=== PATIENT | female | born 1985 | race Caucasian/White ===

== ENCOUNTER 2016-08-19 20:31 | Emergency (ER) | payer BC, OTHER ==
[~2016-08-19] VITALS: Ht 167.6 cm; Wt 109.5 kg
[~2016-08-19 20:31] MED LIST: MTR600X PO; OMEG10007 PO; OXYC5TAB PO; PRENTAB26 PO
[2016-08-19 20:45] VITALS: TEMP 36.9; Ht 167.6 cm; Wt 109.5 kg
[2016-08-19] MEDS ORDERED: NITR-5 PO (21:06)
[2016-08-19] MEDS ORDERED: BCPILLS PO (21:07)
[2016-08-19] MEDS ORDERED: SODIUM CHLORIDE 0.9% 1000ML 1,000 ML IV STA (21:48)
[2016-08-19] MEDS ORDERED: KETOROLAC TROMETHAMINE 30 MG/ML VIAL IV STA (21:53)
[2016-08-19 21:54] LABS: BASO % 0.2 %; EOS % 0.8 %; IG% 0.2 %; LYMPH % 16.3 %; LYMPH ABS # 1.84 K/uL (1.2-3.4); MEAN CELL VOLUME 82.4 fL (80-100); MEAN CORPUSCULAR HGB CONC 35.1 g/dl (32-36); MONO % 8.8 %; NEUT % 73.7 %; PLATELET COUNT 267 K/uL (130-400); RED BLOOD COUNT 4.49 M/uL (4.2-5.4)
[2016-08-19 21:55] LABS: BASO ABS # 0.02 K/uL (0-0.2); COMPLETE YES
[2016-08-19 22:03] LABS: BUN/CREATININE RATIO 14.3 (10-20); CALCIUM 8.4 mg/dl (8.5-10.1); CREATININE 0.6 mg/dl (0.60-1.20); POTASSIUM 3.6 mmol/L (3.5-5.1)
[2016-08-19 22:17] LABS: URINE APPEARANCE CLOUDY (CLEAR); URINE BILIRUBIN NEG (NEG); URINE COLOR YELLOW; URINE EPITHELIAL CELL AUTO >30 /lpf (0-5); URINE NITRITE NEG (NEG); URINE SPECIFIC GRAVITY 1.014 (1.000-1.030); UROBILINOGEN NEG (NEG); ZZUR CULT IF INDIC CLEAN CATCH YES
[2016-08-19 22:22] LABS: MANUAL MICROSCOPIC REQUIRED? NO; REVIEW REQ? NO
[2016-08-19] MEDS ORDERED: CEFTRIAXONE SOD INJ 1 GM ADDVIAL IV STA (22:33)
[2016-08-19] MEDS ORDERED: ONDA4TAB46 PO (23:33)
[2016-08-19] MEDS ORDERED: CEFD1CAP14 PO (23:33)
[2016-08-19 23:37] VITALS: BP 120/75; PULSE 83; O2SAT 97
--- NOTE | 2016-08-20 02:14 | EMERGENCY ROOM VISIT NOTE ---
History Report prepared by Haile: Fletcher Gurrola Under the Supervision of: Katharine RosasO. First contact with patient: 21:37 Chief Complaint: URINARY SYMPTOMS Stated Complaint: PAIN IN KIDNEYS,MAINLY LEFT,PAIN TO URINATE,FEVER, Nursing Triage Summary: Patient reports left sided flank pain that began yesterday. States that she has right sided flank pain yesterday. Patient states that she had her PCP call her in macrobid, started taking that today, states it is not helping at this time. Reports pain with urination and n/v. Hx of UTI's. History of Present Illness The patient is a 30 year old female who presents to the Emergency Room with complaints of constant dysuria beginning three days prior to arrival. She currently rates her discomfort as a 4/10 in severity. The patient associates intermittent bilateral flank pain, intermittent lower abdominal pain, nausea, increased urination frequency and urgency, and a low grade fever with today's symptoms. She notes the nausea began yesterday. The patient notes she has tried a heating pad, which helped alleviate her symptoms when they are mild. She states she has a history of UTIs, so she called her BUSINESS STRATEGIST who called in a prescription for Macrobid. The patient notes she began taking the Macrobid yesterday. She notes her last known menstrual period was a week and a half ago after having her child in November. Pt denies headache, change in vision, chest pain, shortness of breath, vomiting, diarrhea, and melena. 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 A total of 10 systems reviewed and were otherwise negative. Past Medical & Surgical Medical Problems: (1) 39 weeks gestation of (2) Ovarian cyst (3) Pneumonia Surgical Problems: (1) History of knee surgery (2) Patient declines vaginal after section () (3) Previous section (4) [place] teeth removed Family History Diabetes mellitus FH: cancer FH: gallbladder disease FH: heart disease FH: liver cancer MOTHER Hypertension Kidney disease Kidney stones Social History Smoking Status: Never Smoker Alcohol Use: none Marital Status: Housing Status: lives with family Occupation Status: employed Current/Historical Medications Scheduled Control Pills ( Control Pills), 1 TAB PO DAILY Cefdinir (Omnicef), 300 MG PO Q12H Nitrofurantoin Monohyd Macrocr (Macrobid), 100 MG PO BID Scheduled PRN Ibuprofen (Ibuprofen), 600 MG PO Q4H PRN for Pain, JIMENEZ, Cramping, or Fever Ondansetron Hcl (Zofran), 4 MG PO TID PRN for Nausea Allergies Coded Allergies: Codeine (Verified Allergy, Severe, RASH/NAUSEA, 11/08/15) Peanut (Verified Allergy, Severe, RASH, 11/08/15) Uncoded Allergies: SULFA DRUGS (Allergy, Mild, HIVES, 08/19/16) Physical Exam Vital Signs Date Time Temp Pulse Resp B/P Pulse Ox O2 Delivery O2 Flow Rate FiO2 08/19/16 23:37 83 20 120/75 97 Room Air 08/19/16 20:45 36.9 97 20 142/93 98 Room Air Physical Exam GENERAL: sitting up in bed, no acute distress, non-toxic EYE EXAM: normal conjunctiva OROPHARYNX: no exudate, no erythema, lips, buccal mucosa, and tongue normal and mucous membranes are moist NECK: supple, no nuchal rigidity, no adenopathy, non-tender LUNGS: Clear to auscultation. Normal chest wall mechanics HEART: no murmurs, S1 normal and S2 normal ABDOMEN: abdomen soft, non-tender, normo-active bowel sounds, no masses, no rebound or guarding. BACK: Back is symmetrical on inspection and there is no deformity, no midline tenderness, no CVA tenderness. SKIN: no rashes and no bruising UPPER EXTREMITIES: upper extremities are grossly normal. LOWER EXTREMITIES: No pitting edema. NEURO EXAM: Normal sensorium, cranial nerves II-XII grossly intact, normal speech, no gross weakness of arms, no gross weakness of legs. Medical Decision & Procedures Laboratory Results 08/19/16 21:25 Red Blood Count 4.49, Mean Corpuscular Volume 82.4, Mean Corpuscular Hemoglobin 29.0, Mean Corpuscular Hemoglobin Concent 35.1, Mean Platelet Volume 10.0, Neutrophils (%) (Auto) 73.7, Lymphocytes (%) (Auto) 16.3, Monocytes (%) (Auto) 8.8, Eosinophils (%) (Auto) 0.8, Basophils (%) (Auto) 0.2, Neutrophils # (Auto) 8.34, Lymphocytes # (Auto) 1.84, Monocytes # (Auto) 0.99, Eosinophils # (Auto) 0.09, Basophils # (Auto) 0.02 08/19/16 21:25 Test 08/19/16 21:25 White Blood Count 11.30 K/uL (4.8-10.8) Red Blood Count 4.49 M/uL (4.2-5.4) Hemoglobin 13.0 g/dL (12.0-16.0) Hematocrit 37.0 % (37-47) Mean Corpuscular Volume 82.4 fL (80-100) Mean Corpuscular Hemoglobin 29.0 pg (25-34) Mean Corpuscular Hemoglobin Concent 35.1 g/dl (32-36) Platelet Count 267 K/uL (130-400) Mean Platelet Volume 10.0 fL (7.4-10.4) Neutrophils (%) (Auto) 73.7 % Lymphocytes (%) (Auto) 16.3 % Monocytes (%) (Auto) 8.8 % Eosinophils (%) (Auto) 0.8 % Basophils (%) (Auto) 0.2 % Neutrophils # (Auto) 8.34 K/uL (1.4-6.5) Lymphocytes # (Auto) 1.84 K/uL (1.2-3.4) Monocytes # (Auto) 0.99 K/uL (0.11-0.59) Eosinophils # (Auto) 0.09 K/uL (0-0.5) Basophils # (Auto) 0.02 K/uL (0-0.2) RDW Standard Deviation 40.0 fL (36.4-46.3) RDW Coefficient of Variation 13.2 % (11.5-14.5) Immature Granulocyte % (Auto) 0.2 % Immature Granulocyte # (Auto) 0.02 K/uL (0.00-0.02) Urine Color YELLOW Urine Appearance CLOUDY (CLEAR) Urine pH 5.0 (4.5-7.5) Urine Specific [place] 1.014 (1.000-1.030) Urine Protein 2+ (NEG) Urine Glucose (UA) NEG (NEG) Urine Ketones NEG (NEG) Urine Occult Blood 3+ (NEG) Urine Nitrite NEG (NEG) Urine Bilirubin NEG (NEG) Urine Urobilinogen NEG (NEG) Urine Leukocyte Esterase MODERATE (NEG) Urine WBC (Auto) >30 /hpf (0-5) Urine RBC (Auto) >30 /hpf (0-4) Urine Hyaline Casts (Auto) 1-5 /lpf (0-5) Urine Epithelial Cells (Auto) >30 /lpf (0-5) Urine Bacteria (Auto) NEG (NEG) Urine Test NEG (NEG) Anion Gap 11.0 mmol/L (3-11) Est Creatinine Clear Calc Drug Dose 173.3 ml/min Estimated GFR () 142.8 Estimated GFR (Non- 123.2 BUN/Creatinine Ratio 14.3 (10-20) Calcium Level 8.4 mg/dl (8.5-10.1) Total Bilirubin 0.5 mg/dl (0.2-1) Aspartate Amino Transf (AST/SGOT) 13 U/L (15-37) Alanine Aminotransferase (ALT/SGPT) 24 U/L (12-78) Alkaline Phosphatase 92 U/L (45-117) Total Protein 6.9 gm/dl (6.4-8.2) Albumin 3.4 gm/dl (3.4-5.0) Globulin 3.5 gm/dl (2.5-4.0) Albumin/Globulin Ratio 1.0 (0.9-2) Laboratory results per my review. Medications Administered Medications (Trade) Dose Ordered Sig/Viv Route Start Time Stop Time Status Last Admin Dose Admin Sodium Chloride (Nss 1000ml) 1,000 ml @ 999 mls/hr Q1H1M STAT IV 08/19/16 21:48 08/19/16 22:48 DC 08/19/16 21:48 999 MLS/HR Ketorolac Tromethamine (Toradol Inj) 30 mg NOW STAT IV 08/19/16 21:53 08/19/16 21:55 DC 08/19/16 22:22 30 MG Ceftriaxone Sodium (Rocephin Inj) 1 gm NOW STAT IV 08/19/16 22:33 08/19/16 22:34 DC 08/19/16 22:44 1 GM ED Course ED COURSE: Vital signs were reviewed and showed normal vitals. The patients medical record was reviewed The above diagnostic studies were performed and reviewed. ED treatments and interventions as stated above. 0: The patient was evaluated in room C1B. A complete history and physical examination was performed. 2147: Ordered Sodium Chloride 1,000 ml @ 999 mls/hr IV. 2152: Ordered Toradol Inj 30 mg IV. 2232: Ordered Rocephin Inj 1 gm IV. 7: Upon reevaluation, the patient is doing well.I discussed my findings with the patient and she understands and agrees with the treatment plan. Based on the patients age, coexisting illnesses, exam and lab findings the decision to treat as an outpatient was made. The patient remained stable while under my care. The patient appeared well at the time of discharge. Medical Decision Differential diagnoses includes but is not limited to gastritis, peptic ulcer disease, GERD, gallbladder disease, pancreatitis, small bowel obstruction, acute coronary syndrome, pericarditis, ischemic bowel, irritable bowel disease, irritable bowel syndrome, appendicitis, diverticulitis, malignancy, hernia, urinary tract infection, torsion, /ectopic , perforation, trauma, infectious. Patient is a 30-year-old female who presents the ER for urinary urgency, frequency and dysuria. Patient notes this has been worsening for the past 2 days. She currently denies any abdominal pain or back pain but notes that she did have this earlier today. Labs show no significant leukocytosis or anemia. BMP along with LFTs, bilirubin or unremarkable. is negative. UA is remarkable for esterase, white cells and epithelial cells. With her symptoms I do favor she has a UTI although the urine was Made. She admits that this is extremely similar to her previous UTIs. She was given a gram of Rocephin. Previous cultures were reviewed. She was discharged on Omnicef to follow-up with her primary care doctor. Vitals were stable upon discharge. She was well- appearing. Abdomen had no signs peritonitis and consequently I did not feel the need for any additional imaging was prudent at this time. Discussed with Pt concerning signs and symptoms to watch out for. Pt was instructed to follow up with their PCP and discussed with the patient their option to return to the ED at anytime for persistent or worsening symptoms. The appropriate anticipatory guidance and out-patient management, including indications for return to the emergency department, were explained at length to the patient and understood. Impression Primary Impression: Urinary tract infection Additional Impressions: Symptoms involving urinary system Dysuria Scribe Attestation The scribe's documentation has been prepared under my direction and personally reviewed by me in its entirety. I confirm that the note above accurately reflects all work, treatment, procedures, and medical decision making performed by me. Departure Information Dispostion Home / Self-Care Prescriptions Cefdinir (Omnicef) 300 Mg Cap 300 MG PO Q12H for 10 Days, #20 CAP Prov: Tung Tsang, DO 08/19/16 Ondansetron Hcl (ZOFRAN) 4 Mg Tab 4 MG PO TID Y for Nausea, #30 TAB Prov: Tung Tsang, DO 08/19/16 Referrals Ifrah Dee MD (PCP) Forms HOME CARE DOCUMENTATION FORM, IMPORTANT VISIT INFORMATION Patient Instructions ED UTI Cystitis Female, My [facility] Additional Instructions Please follow up with your primary care doctor with in the next 24 hours. Any worsening of your symptoms, please return to the ED immediately. Persistent nausea vomiting, fevers greater than 100.4, passing out, worsening pain, or any other concerning signs or symptoms from your standpoint. Please take antibiotics as prescribed. Please take Zofran as needed for nausea. Problem Qualifiers Primary Impression: Urinary tract infection Urinary tract infection type: acute cystitis Hematuria presence: with hematuria Qualified Codes: N30.01 - Acute cystitis with hematuria
--- NOTE | 2016-08-21 13:17 | Pharmacy Progress Note ---
ED Pharmacist Culture FollowUp Date of Service: Aug 21, 2016. Patient was sent home with a prescription for cefdinir, which should cover the E. coli growing from the patient's urine culture.
== END 2016-08-19 23:55 | disposition home or self-care (01) ==
LOC: C.EDB 20:33 → C.EDC 23:55
DX: N39.0 Urinary tract infection, site not specified (principal); A49.8 Other bacterial infections of unspecified site

== ENCOUNTER → 2017-01-06 | Outpatient (CLI) | payer BC, OTHER ==
[~2017-01-06] MED LIST changes: +BCPILLS PO; +NITR-5 PO; -OMEG10007 PO; +ONDA4TAB46 PO; -OXYC5TAB PO; -PRENTAB26 PO
== END | disposition home or self-care (01) ==
LOC: C.PAPS 09:26
PROVIDERS: ATTEND Obstetrics & Gynecology
DX: Z01.419 Encounter for gynecological examination (general) (routine) without abnormal findings (principal)

== ENCOUNTER 2018-11-26 05:40 | Inpatient (IN) ==
--- NOTE | 2018-11-24 09:56 | PAT Medication Instructions ---
Medication Instructions Date of Service November 24, 2018 Home Medications PNV cmb#95-ferrous fumarate-FA 1 tab PO DAILY Vitamin B6 1 tab PO DAILY docusate sodium [Stool Softener] 2 cap PO DAILY doxylamine succinate [Unisom 12.5 mg PO HS PRN sertraline 75 mg PO QPM DO NOT take the morning of surgery PNV cmb#95-ferrous fumarate-FA 1 tab PO DAILY Vitamin B6 1 tab PO DAILY docusate sodium [Stool Softener] 2 cap PO DAILY Take evening before surgery doxylamine succinate Unisom 12.5 mg PO HS PRN (if needed) sertraline 75 mg PO QPM Other Notes If you have any questions please call us at [phone] or [phone] or [phone] or [phone]
--- NOTE | 2018-11-25 10:42 | Anesthesiology Consultation ---
Date of Service November 25, 2018 Assessment & Plan (1) Encounter for pre-operative examination: - Repeat c/s - No labs testing at PAT visit per GEOGRAPHY DEPARTMENT CHAIR Chart Review Chart Review: Acceptable Risk for Surgery and Patient seen in Pre Admission Testing Teaching & Discussion Pre-Anesthesia Teaching/Discussion Notes: Instructed NPO after midnight before surgery,except medications with 15 cc of water. Medication instructions provided according to the [facility] guidelines. History Surgery Operation Date: 11/26/18 07:30 Proposed Procedures p Section, - Lona Guerrero MD, FACOG s with Bilateral Tubal Ligation - Lona Guerrero MD, FACOG Height/Weight Height: 5 ft 7.5 in Weight: 116.2 kg Allergies Allergy/AdvReac Type Severity Reaction Status Date / Time codeine Allergy Severe RASH/NAUSEA Verified 11/18/18 09:41 (SEVERE) peanut Allergy Unknown RASH Verified 11/18/18 09:41 SULFA DRUGS Allergy Unknown HIVES Uncoded 11/18/18 09:41 Medications Home Medications Medication Instructions Recorded Confirmed Last Taken PNV cmb#95-ferrous fumarate-FA 1 tab PO DAILY 11/18/18 11/18/18 Unknown [] Vitamin B6 1 tab PO DAILY 11/18/18 11/18/18 Unknown docusate sodium [Stool Softener] 2 cap PO DAILY 11/18/18 11/18/18 Unknown doxylamine succinate [Unisom 12.5 mg PO HS PRN 11/18/18 11/18/18 Unknown (doxylamine)] sertraline 75 mg PO QPM 11/18/18 11/18/18 Unknown Past Medical History Medical History Depression with anxiety Hemorrhoid History of pre-eclampsia "STARTING OF" (WITH A PRIOR ); NOT AN ISSUE WITH CURRENT Obesity Past Family History Family History Mother Family history of liver cancer Past Surgical History Surgical History History of 2 sections INITIAL C/S 2/2 FAILURE TO PROGRESS REPEAT C/S: 11/11/15: SAB at L3-L4 at [facility] History of left knee surgery History of wisdom tooth extraction Past Anesthesia History Other History of PONV Yes (X1 WITH INITIAL C/S; NOT NOTED WITH SUBSEQUENT C/S) Social History Smoking Status: Never smoker Do You Dip or Chew Tobacco: No Hx Alcohol Use: No Hx Substance Use: No substance use type: does not use Exercise / Class Metabolic Activity III < 4 Walking/Shop/Light housework Review of Systems Patient denies chest pain, shortness of breath, reflux, cough, wheezing, palpitations. Physical Exam Vital Signs VITALS BP 123/84 P 80 TEMP 98.0 SP02 97%RA RESP 18 PHYSICAL Full neck and c-spine range of motion. Full TMJ range of motion. TMD 3.5 finger breaths Mallampati Score 3 Dentition: intact Lungs: clear throughout to auscultation Cardiac: regular rate and rhythm, no murmurs noted Spine: normal Extremities: no edema
--- NOTE | 2018-11-25 12:50 | History & Physical Report ---
Date of Service November 25, 2018 Assessment & Plan (1) Previous section: For repeat section & bilateral tubal ligation for unwanted fertility & multiparity. Thre procedure & the risks of both the section & tubal ligation were reviewed with the patient and all of her questions & concerns were addressed. Present on Admission?: Yes (2) Unwanted fertility: see section assessment. Present on Admission?: Yes History of Present Illness Primary Care Provider: Renetta Wilder Patient is a 33 yo white female EDC 12/02/18 who presents at 39 weeks for repeat section & bilateral tubal ligation. has been complicated by maternal obesity. Otherwise no other complications. First C/S done because or arrest of dilation at 5 cm wtih delviery of a 9 lb 6oz infant. She then had an elective repeat C/S. Blood Type O(+) RPR-NR Rubella -Immune HIV-negative HBsAg-negative anatomy scan complete & normal 1hr glucola elevated at 28 weeks but 2hr GTT was normal GBS-negative Allergies Allergy/AdvReac Type Severity Reaction Status Date / Time codeine Allergy Severe RASH/NAUSEA Verified 11/18/18 09:41 (SEVERE) peanut Allergy Unknown RASH Verified 11/18/18 09:41 SULFA DRUGS Allergy Unknown HIVES Uncoded 11/18/18 09:41 Home Medications Home Medications Medication Instructions Recorded Confirmed Type PNV cmb#95-ferrous fumarate-FA 1 tab PO DAILY 11/18/18 11/18/18 History [] Vitamin B6 1 tab PO DAILY 11/18/18 11/18/18 History docusate sodium [Stool Softener] 2 cap PO DAILY 11/18/18 11/18/18 History doxylamine succinate [Unisom 12.5 mg PO HS PRN 11/18/18 11/18/18 History (doxylamine)] sertraline 75 mg PO QPM 11/18/18 11/18/18 History Patient History Medical History Depression with anxiety Hemorrhoid History of pre-eclampsia "STARTING OF" (WITH A PRIOR ); NOT AN ISSUE WITH CURRENT Obesity Surgical History History of 2 sections INITIAL C/S 2/2 FAILURE TO PROGRESS REPEAT C/S: 11/11/15: SAB at L3-L4 at [facility] History of left knee surgery History of wisdom tooth extraction Family History Mother Family history of liver cancer Social History Preferred Language: Malagasy Communication Ability: Effective Grain Grader Required: No Beliefs That Will Affect Care: None Current Living Situation: Family Other Information That Helps Us Care for You: No Feels Safe at Home: Yes Smoking Status: Never smoker Do You Dip or Chew Tobacco: No Hx Alcohol Use: No Hx Substance Use: No Review of Systems All systems reviewed & are unremarkable except as noted in HPI & below Physical Exam Constitutional: WD/WN, vitals as above Respiratory: normal respiratory effort, lungs clear to auscultation Cardiovascular: RRR, no murmur, no edema Gastrointestinal (Abdomen): well healed low transverse incision Psychiatric: A+Ox3, euthymic affect Genitourinary: OB Exam Abdomen: + fundal height (40 cm), + heart tones (155 bpm), + vertex and + estimated weight (8-9 pounds) no calf tenderness trace pedal edema
[2018-11-26] MEDS ORDERED: LACTATED RINGER'S 1,000 ML IV SCH ×3 (05:45→06:38)
[2018-11-26 06:00] LABS: Basophils # (auto) 0.01 K/uL (0-0.2); Basophils % (auto) 0.1 %; Eosinophils % (auto) 1.3 %; Hematocrit (blood only) 30.1 % (37-47); Hemoglobin 10.4 g/dL (12.0-16.0); Immature Granulocytes # (auto) 0.02 K/uL (0.00-0.02); Immature Granulocytes % (auto) 0.3 %; Lymphocytes # (auto) 2.04 K/uL (1.2-3.4); Lymphocytes % (auto) 27.5 %; Mean Corpuscular Volume 83.4 fL (80-100); Mean Platelet Volume 10.9 fL (7.4-10.4); Monocytes # (auto) 0.56 K/uL (0.11-0.59); Monocytes % (auto) 7.5 %; Neutrophils # (auto) 4.69 K/uL (1.4-6.5); Neutrophils % (auto) 63.3 %; Platelet Count 217 K/uL (130-400); RDW Coefficient of Variation 15.4 % (11.5-14.5); RDW Standard Deviation 46.8 fL (36.4-46.3); Red Blood Count 3.61 M/uL (4.2-5.4); White Blood Count 7.42 K/uL (4.8-10.8)
[2018-11-26] MEDS ORDERED: CITRIC ACID/SODIUM CITRATE 15 ML UDC PO SCH ×2 (06:00)
[2018-11-26 06:03] LABS: Mean Corpuscular Hgb Conc 34.6 g/dL (32-36)
[2018-11-26] MEDS: CEFAZOLIN 3,000 MG in DEXTROSE 5% 50 ML IV SCH ×2 (06:09→07:32)
--- NOTE | 2018-11-26 07:18 | History & Physical Bridge Note ---
Date of Service November 26, 2018 History & Physical Bridge Note I have examined the patient, reviewed the History & Physical and in the interval since the performance of the History & Physical I have noted the following changes of clinical significance: no changes noted
[2018-11-26] MEDS ORDERED: MoRPHine SULFATE PF 1 MG/ML 10 ML AMP/VIAL ONE (07:25)
[2018-11-26] MEDS ORDERED: fentaNYL citrate 100 MCG/2 ML VIAL ONE (07:25)
[2018-11-26] MEDS ORDERED: PHENYLEPHRINE 100MCG/ML 5ML SYR ONE (08:08)
[2018-11-26] MEDS ORDERED: OXYTOCIN 10 UNITS/ML VIAL ONE (08:08)
[2018-11-26] MEDS ORDERED: ONDANSETRON INJ 2 MG/ML 2 ML VIAL ONE (08:08)
[2018-11-26] MEDS ORDERED: KETOROLAC 30 MG/ML VIAL ONE (08:08)
--- NOTE | 2018-11-26 08:43 | Post Operative Brief Note ---
Immediate Post Op Note v1 Date of Surgery November 26, 2018 Pre & Post Diagnosis Operation Date: 11/26/18 07:30 Pre-op diagnosis: IUP at 39 weeks , prior ssection X 2, unwanted fertility. Post-op diagnosis: same plus delivery of viable female Procedure repeat low transverse section and bilateral modified taylor tubal ligaton Operation Date: 11/26/18 07:30 <No data on this case meets the specified criteria> Surgeon Lona Guerrero MD, FACOG Fitting Room Operator Yodit Alicea MD & Brittani Sanchez Estimated Blood Loss 500 Findings Consistent with Post-Op Diagnosis Fluids 1200 Specimens placenta Drains Ken Catheter (ken catheter inserted without difficulty for clear yellow urine, dr little to monitor) Complications none Disposition Accompanied Patient To Recovery: Yes Disposition: L&D
[2018-11-26] MEDS ORDERED: NALOXONE HCL 0.08 MG in SYRINGE 1.8 ML IV PRN (08:56)
[2018-11-26] MEDS ORDERED: PROMETHAZINE HCL 6.25 MG in SODIUM CHLORIDE 0.9% 50 ML IV PRN (08:56)
[2018-11-26] MEDS ORDERED: MoRPHine SULFATE 4 MG/ML 1 ML CARP\\VIAL IV PRN (08:56)
[2018-11-26] MEDS ORDERED: LACTATED RINGER'S 500 ML IV PRN (08:56)
[2018-11-26] MEDS ORDERED: NALOXONE HCL 1 MG in SODIUM CHLORIDE 0.9% 1000ML 1,000 ML IV PRN (08:56)
[2018-11-26] MEDS ORDERED: ePHEDrine sulfate 50 MG/ML AMP IV PRN ×2 (08:56)
[2018-11-26] MEDS ORDERED: NALOXONE HCL 0.4 MG/1 ML VIAL/CARP IV PRN (08:56)
[2018-11-26] MEDS ORDERED: NALBUPHINE HCL INJ 10 MG/ML AMP IV PRN (08:56)
[2018-11-26] MEDS ORDERED: ONDANSETRON INJ 2 MG/ML 2 ML VIAL IV PRN (08:56)
[2018-11-26] MEDS ORDERED: MoRPHine SULFATE PF 1 MG/ML 10 ML AMP/VIAL INT SPINAL ONE (08:56)
[2018-11-26] MEDS ORDERED: DiphenhydrAMINE HCL 50 MG/ML VIAL IV PRN ×2 (08:56)
[2018-11-26] MEDS ORDERED: MEPERIDINE HCL 25 MG/ML CARP IV PRN (08:56)
[2018-11-26] MEDS ORDERED: ATROPINE SULFATE 0.1 MG/ML 10ML SYR IV PRN (08:56)
[2018-11-26] MEDS ORDERED: HYDROmorphone INJ 0.5 MG/0.5 ML SYR IV PRN (08:56)
[2018-11-26] MEDS ORDERED: NO NARCOTICS OR SEDATIVES SCH (09:00)
[2018-11-26] MEDS ORDERED: SODIUM CHLORIDE 0.9% 1000ML 1,000 ML IV SCH (09:00)
--- NOTE | 2018-11-26 10:48 | Anesthesiology Progress Note ---
Date of Service November 26, 2018 Anesthesia Post Procedure Vital Signs Vital Signs: Temp Pulse Resp BP Pulse Ox 11/26/18 10:43 84 97 11/26/18 10:38 81 99 11/26/18 10:33 72 98 11/26/18 10:28 75 98 11/26/18 10:23 86 98 11/26/18 10:20 75 20 140/90 11/26/18 10:18 82 98 11/26/18 10:13 83 98 11/26/18 10:08 89 98 11/26/18 10:03 77 97 11/26/18 09:57 74 99 11/26/18 09:52 80 100 11/26/18 09:51 20 11/26/18 09:50 82 137/73 11/26/18 09:47 36.5 C 76 20 99 11/26/18 09:42 84 100 11/26/18 09:40 86 131/71 11/26/18 09:39 20 11/26/18 09:37 78 97 11/26/18 09:32 82 97 11/26/18 09:31 81 92 11/26/18 09:28 85 122/86 11/26/18 09:27 83 20 98 11/26/18 09:22 85 100 11/26/18 09:18 73 119/82 11/26/18 09:17 79 20 90 11/26/18 09:12 62 100 11/26/18 09:07 61 20 116/75 99 11/26/18 09:02 91 H 100 11/26/18 08:57 65 18 119/74 100 11/26/18 08:52 79 100 11/26/18 08:48 90 116/71 11/26/18 08:47 36.4 C L 84 20 100 11/26/18 07:06 82 131/87 11/26/18 07:04 81 100 11/26/18 06:59 84 98 11/26/18 06:54 84 98 11/26/18 06:49 84 99 11/26/18 06:45 80 133/94 11/26/18 06:44 86 100 11/26/18 06:31 18 11/26/18 05:58 85 132/91 11/26/18 05:54 99 H 133/93 11/26/18 05:49 18 11/26/18 05:47 36.7 C 18 Notes Mental Status: alert / awake / arousable Patient Amnestic to Procedure: Yes Nausea / Vomiting: adequately controlled Pain: adequately controlled Airway Patency, RR, SpO2: stable & adequate BP & HR: stable & adequate Hydration State: stable & adequate Neuraxial Anesthesia: was administered and sensory block is resolving Anesthetic Complications: no major complications apparent
[2018-11-26] MEDS ORDERED: SENNA 8.6 MG TAB PO PRN (11:34)
[2018-11-26] MEDS ORDERED: MAGNESIUM HYDROXIDE SUSP 30 ML UDC PO PRN (11:34)
[2018-11-26] MEDS ORDERED: DIPHTHERIA/TETANUS/PERTUSSIS 0.5 ML SYR/VIAL IM ONE (11:34)
[2018-11-26] MEDS: OXYTOCIN 20 UNITS in LACTATED RINGER'S 1,000 ML IV SCH ×2 (12:26→20:52)
--- NOTE | 2018-11-26 14:06 | Operative Report ---
DATE OF OPERATION: 11/26/2018 SURGEON: Lona Hahn MD ASSISTANTS: Yodit Alicea MD and Brittani Tatum MD PREOPERATIVE DIAGNOSES: Intrauterine at 39 weeks, prior section x2, unwanted fertility and multiparity. POSTOPERATIVE DIAGNOSES: Intrauterine at 39 weeks, prior section x2, unwanted fertility and multiparity, delivery of a viable female infant, 9 pounds 7.5 ounces, Apgars 8 and 9. PROCEDURE: Repeat low transverse section and bilateral modified Vowinckel tubal ligation. ANESTHESIA: Subarachnoid block. BLOOD LOSS: 500 mL. HISTORY: The patient is a 33-year-old white female G4, P3-0-1-3, EDC of 12/02/2018 who presents at 39 weeks for repeat section and bilateral tubal ligation. Her had been complicated by obesity, but otherwise no other complications. Her first section was done because of arrest of dilation at 5 cm for a 9-pound 6-ounce infant. She now presents for repeat section and bilateral tubal ligation for unwanted fertility and multiparity. She understands the risks of both procedures and she is willing to proceed. GROSS FINDINGS: Uterus is gravid and consistent with a term in size. Bilateral ovaries and fallopian tubes are grossly normal. DESCRIPTION OF PROCEDURE: After the patient received adequate subarachnoid block, she was prepped and draped in usual sterile fashion. A low transverse skin incision was made through a prior scar and carried to the fascia with the same scalpel. The fascial incision was then extended with Cummings scissors. The edges were grasped with Jose clamps and the underlying rectus muscles bluntly and sharply dissected off the overlying fascia. The rectus muscles were then bluntly divided along the midline and the peritoneum was also entered bluntly. The bladder was then taken down off the anterior surface of the uterus with Metzenbaum scissors. The low uterine segment was noted to be thin, it was entered with the scalpel and extended transversely. Clear fluid was found on entering the uterine cavity. The was delivered with moderate fundal pressure and vacuum assistance through the incision. Mouth and nasopharynx were suctioned upon delivery of the head. The rest of the delivered easily with moderate fundal pressure. Cord was then clamped and cut. There was vigorous crying and the was handed off to Dr. Corona who was in attendance as j2ee architect. The placenta was expressed intact with a 3-vessel cord. The uterus was exteriorized and covered with a clean lap sponge. The uterine cavity was explored and found to be free of any placental tissue or membranes. The uterus was then closed in a single layer with 0 Monocryl in an imbricating fashion. Hemostasis was noted to be excellent. Attention was then turned to the tubes. The right fallopian tube was identified and followed to its fimbriated end. It was grasped on the mid portion with a Charlene clamp. Knuckle of tube was developed with a tie of 3-0 plain catgut followed by suture ligature of the same. The knuckle of tube was then removed. The ends of the remaining tube were then cauterized. The left fallopian tube was then identified, followed to its fimbriated end. It was grasped on the mid portion with a Charlene clamp. A knuckle of tube was developed with a tie of 3-0 plain catgut after suturing it to the distal portion of the tube that was to be removed. A second tie of 3-0 plain catgut was used to reinforce the first. A third tie was placed superiorly to the initial ligatures. The remaining tube was then removed above the second ligature. The ends of the tube were then cauterized. Hemostasis was noted to be excellent. The posterior cul-de-sac was irrigated with normal saline solution. The uterine incision and tubal sites were examined once more and found to have excellent hemostasis. The uterus was placed back inside the abdominal cavity gently. The tubal sites were examined once more and continued to have excellent hemostasis. Some bleeding in the area of the bladder flap was controlled with Bovie. The anterior cul-de-sac was then irrigated with normal saline. The rectus muscles were brought together on the midline with individual stitches of 0 Monocryl. The fascia was closed in a running fashion with 0 Vicryl. The Logan's fascia was closed also in a running fashion with 3-0 chromic. The skin edges were reapproximated using 4-0 Vicryl in a subcuticular manner. The adipose layer was irrigated prior to closing Logan's fascia. Urine was clear at the end of the case. The patient tolerated the procedure well and was stable upon arrival in labor and delivery. I attest to the content of the Intraoperative Record and any orders documented therein. Any exception s are noted below.
[2018-11-26] MEDS: SIMETHICONE 80 MG CHEW PO SCH ×3 (15:36→21:16)
[2018-11-26] MEDS: KETOROLAC 30 MG/ML VIAL IV PRN ×2 (16:16→23:39)
[2018-11-26] MEDS: SUPERCREAM 0.870% 15 GM JAR EXT PRN (16:17)
[2018-11-26] MEDS ORDERED: HYDROCORTISONE ACETATE 25 MG SUPP PR PRN (21:47)
[2018-11-27] MEDS ORDERED: DC INTRASPINAL MORPHINE SCH (02:56)
[2018-11-27] MEDS ORDERED: PROMETHAZINE HCL 25 MG in SODIUM CHLORIDE 0.9% 50 ML IV PRN (03:00)
[2018-11-27] MEDS ORDERED: OXYCODONE/ACETAMINOPHEN 5mg/325mg TAB PO PRN (03:00)
[2018-11-27] MEDS ORDERED: ONDANSETRON INJ 2 MG/ML 2 ML VIAL IV PRN (03:00)
[2018-11-27] MEDS ORDERED: ZOLPIDEM TARTRATE 5 MG TAB PO PRN (03:00)
[2018-11-27] MEDS ORDERED: DiphenhydrAMINE HCL 50 MG/ML VIAL IV PRN (03:00)
[2018-11-27] MEDS ORDERED: KETOROLAC 30 MG/ML VIAL IV PRN (03:00)
[2018-11-27] MEDS ORDERED: MEPERIDINE HCL 50 MG/ML CARP IV PRN (03:00)
[2018-11-27 06:52] LABS: Basophils # (auto) 0.01 K/uL (0-0.2); Basophils % (auto) 0.1 %; Eosinophils # (auto) 0.09 K/uL (0-0.5); Eosinophils % (auto) 1.1 %; Hematocrit (blood only) 28.3 % (37-47); Hemoglobin 9.6 g/dL (12.0-16.0); Immature Granulocytes # (auto) 0.02 K/uL (0.00-0.02); Immature Granulocytes % (auto) 0.3 %; Lymphocytes # (auto) 1.46 K/uL (1.2-3.4); Lymphocytes % (auto) 18.3 %; Mean Corpuscular Hgb Conc 33.9 g/dL (32-36); Mean Corpuscular Volume 84.7 fL (80-100); Mean Platelet Volume 11.1 fL (7.4-10.4); Monocytes # (auto) 0.58 K/uL (0.11-0.59); Monocytes % (auto) 7.3 %; Neutrophils # (auto) 5.83 K/uL (1.4-6.5); Neutrophils % (auto) 72.9 %; Platelet Count 201 K/uL (130-400); RDW Coefficient of Variation 15.2 % (11.5-14.5); RDW Standard Deviation 47.4 fL (36.4-46.3); Red Blood Count 3.34 M/uL (4.2-5.4); White Blood Count 7.99 K/uL (4.8-10.8)
--- NOTE | 2018-11-27 08:03 | Obstetrical Progress Note ---
Date of Service <Brittani Tatum MD - Last Filed: 11/27/18 08:03> November 27, 2018 Assessment & Plan <Brittani Tatum MD - Last Filed: 11/27/18 08:03> (1) delivery delivered: 33yo with repeat and bilat tubal ligation. Post op DAY 1 -routine care -ambulation encouraged -pain control Day #:: 1 Subjective <Brittani Tatum MD - Last Filed: 11/27/18 08:03> Ambulation: ambulating normally Voiding: no voiding problems Diet Tolerance:: regular diet Lochia:: Moderate Feeding Type:: breast feeding Current Pain Level(1-10): 5 painful hemorrhoids not helped with supercream or suppository Respiratory: no dyspnea Cardiovascular: no chest pain, no palpitations and no calf pain Gastrointestinal: no nausea and no vomiting Genitourinary (female): no dysuria Neurologic: no headache(s) Physical Exam <Brittani Tatum MD - Last Filed: 11/27/18 08:03> Vital Signs (Past 24 Hours) Last Vital Signs Temp 36.6 C 11/27/18 03:30 Pulse 80 11/27/18 03:30 Resp 18 11/27/18 03:30 BP 128/80 11/27/18 03:30 Pulse Ox 99 11/27/18 03:30 Respiratory normal respiratory effort, lungs clear to auscultation Cardiovascular Rate/Rhythm: regular rate and regular rhythm Extremities: no calf tenderness Gastrointestinal (Abdomen) Inspection/Auscultation: + abdominal surgical incision (unbandaged and clean, dry, intact. No bleeding or drainage) Genitourinary OB Exam Abdomen: + fundal height Fundus: + firm and + relation to umbilicus (2 above) Results & Data <Brittani Tatum MD - Last Filed: 11/27/18 08:03> Laboratory Results Laboratory Results - last 24 hr 11/27/18 06:17 WBC 7.99 RBC 3.34 L Hgb 9.6 L Hct 28.3 L MCV 84.7 MCH 28.7 MCHC 33.9 RDW Std Deviation 47.4 H RDW Coeff of Willy 15.2 H Plt Count 201 MPV 11.1 H Immature Gran % (Auto) 0.3 Neut % (Auto) 72.9 Lymph % (Auto) 18.3 [place] % (Auto) 7.3 Eos % (Auto) 1.1 Baso % (Auto) 0.1 Immature Gran # (Auto) 0.02 Neut # (Auto) 5.83 Lymph # (Auto) 1.46 [place] # (Auto) 0.58 Eos # (Auto) 0.09 Baso # (Auto) 0.01 Medications Administered Home Medications PNV cmb#95-ferrous fumarate-FA [] 1 tab PO DAILY 11/18/18 [History Confirmed 11/26/18] docusate sodium [Stool Softener] 2 cap PO DAILY 11/18/18 [History Confirmed 11/26/18] doxylamine succinate [Unisom (doxylamine)] 12.5 mg PO HS PRN 11/18/18 [History Confirmed 11/26/18] sertraline 75 mg PO QPM 11/18/18 [History Confirmed 11/26/18] Active Medications Bisacodyl (Dulcolax) 5 mg PO 1999 [facility] Stop: 11/27/18 20:01 Bisacodyl (Dulcolax) 10 mg GA TODAY@0700 PRN PRN Reason: Constipation Stop: 11/28/18 23:59 Cocaine HCl (Supercream 0.870%) 1 gm EXT UD PRN PRN Reason: hemmorrhoidal inflammation Stop: 12/10/18 11:33 Last Admin: 11/26/18 16:17 Dose: 1 gm Documented by: Diphenhydramine HCl (Benadryl Capsule) 25 mg PO QID PRN PRN Reason: Itching Stop: 12/27/18 02:59 Diphenhydramine HCl (Benadryl) 25 mg IV QID PRN PRN Reason: Itching Stop: 12/27/18 02:59 Docusate Sodium (Colace) 100 mg PO BID HINA Stop: 12/26/18 11:59 Hydrocortisone (Anusol Hc) 25 mg GA BID PRN PRN Reason: Hemorrhoids Stop: 12/26/18 21:46 Last Admin: 11/26/18 22:09 Dose: 25 mg Documented by: Promethazine HCl 25 mg/ Sodium (Chloride) 51 mls @ 204 mls/hr IV Q4H PRN PRN Reason: Nausea And Vomiting Stop: 12/27/18 02:59 Ibuprofen (Motrin) 600 mg PO Q4H PRN PRN Reason: Pain Stop: 12/26/18 11:33 Ketorolac Tromethamine (Toradol) 30 mg IV Q6H PRN PRN Reason: Pain Stop: 12/01/18 02:59 Magnesium Hydroxide (Milk Of Magnesia) 30 ml PO HS PRN PRN Reason: Constipation Stop: 12/26/18 11:33 Meperidine HCl (Demerol) 50 - 75 mg IV Q4H PRN PRN Reason: Pain Stop: 12/11/18 02:59 Ondansetron HCl (Zofran) 4 mg IV Q4H PRN PRN Reason: Nausea And Vomiting Stop: 12/27/18 02:59 Oxycodone/Acetaminophen (Percocet 5mg/325mg) 1 tab PO Q4H PRN PRN Reason: Pain Stop: 12/11/18 02:59 Prenat Multivit/[place]/Iron/Folic Ac ( Vitamin) 1 tab PO QAM [facility] Stop: 12/26/18 11:59 Sennosides (Senokot) 17.2 mg PO HS PRN PRN Reason: Constipation Stop: 12/26/18 11:33 Simethicone (Mylicon) 80 mg PO QID [facility] Stop: 12/26/18 11:33 Last Admin: 11/26/18 21:16 Dose: 80 mg Documented by: Zolpidem Tartrate (Ambien) 5 mg PO HS PRN PRN Reason: Sleep Stop: 12/27/18 02:59 <Tatiana Ramsay MD, FACOG - Last Filed: 11/27/18 08:12> Co-Signing Physician Notes Resident Physician Supervision Note: I interviewed and examined the patient. Discussed with Dr. Peter and agree with findings and plan as documented in the note. Any exceptions or clarifications are listed here: [None] Documented By: Tatiana Ramsay MD, FACOG
[2018-11-27] MEDS: PRENATAL VITAMIN 1 TAB PO SCH (08:42)
[2018-11-27] MEDS: DOCUSATE SODIUM 100 MG CAP PO SCH ×2 (08:42→20:37)
[2018-11-27] MEDS: SIMETHICONE 80 MG CHEW PO SCH ×4 (08:43→20:37)
--- NOTE | 2018-11-27 11:02 | Anesthesiology Progress Note ---
Date of Service November 27, 2018 Anesthesia Post Procedure Vital Signs Vital Signs: Temp Pulse Pulse Resp BP BP Pulse Ox 11/27/18 07:15 98.1 F 66 20 127/83 98 11/27/18 03:30 97.9 F 80 18 128/80 99 11/27/18 01:55 18 99 11/27/18 00:30 20 99 11/26/18 21:50 16 97 11/26/18 20:50 16 97 11/26/18 19:50 98.8 F 78 18 125/82 97 11/26/18 18:50 16 97 11/26/18 17:50 18 98 11/26/18 16:50 16 97 11/26/18 15:50 98.4 F 76 18 120/78 97 11/26/18 14:40 18 95 11/26/18 13:40 18 96 11/26/18 12:40 98.6 F 76 18 127/82 96 11/26/18 12:32 98.6 F 78 20 127/70 11/26/18 12:28 90 98 11/26/18 12:23 76 94 11/26/18 12:18 74 94 11/26/18 12:13 71 93 11/26/18 12:08 72 94 11/26/18 12:03 83 95 11/26/18 11:58 77 95 11/26/18 11:53 86 98 11/26/18 11:50 20 11/26/18 11:49 71 129/70 11/26/18 11:48 72 93 11/26/18 11:43 75 94 11/26/18 11:38 82 97 11/26/18 11:33 75 96 11/26/18 11:28 81 97 11/26/18 11:23 81 99 11/26/18 11:18 84 99 11/26/18 11:13 78 100 11/26/18 11:08 78 100 11/26/18 11:03 86 98 Pain Intensity Bilateral Buttock: Pain Intensity: 5 Notes Mental Status: alert / awake / arousable and participated in evaluation Nausea / Vomiting: adequately controlled Pain: adequately controlled Airway Patency, RR, SpO2: stable & adequate BP & HR: stable & adequate Hydration State: stable & adequate Neuraxial Anesthesia: was administered and sensory block resolved Anesthetic Complications: no major complications apparent and Pt Satisfied with anesthetic care
[2018-11-27] MEDS: IBUPROFEN 600 MG TAB PO PRN ×3 (11:16→21:05)
[2018-11-27] MEDS ORDERED: BISACODYL 5 MG TABEC PO SCH (20:00)
[2018-11-27] MEDS ORDERED: SERTRALINE HCL 50 MG TABLET PO SCH (21:00)
[2018-11-28] MEDS ORDERED: BISACODYL 10 MG SUPP PR PRN (07:00)
[2018-11-28 07:23] LABS: Hematocrit (blood only) 30.2 % (37-47); Hemoglobin 10.1 g/dL (12.0-16.0)
[2018-11-28] MEDS: IBUPROFEN 600 MG TAB PO PRN (08:12)
[2018-11-28] MEDS: DOCUSATE SODIUM 100 MG CAP PO SCH (08:13)
[2018-11-28] MEDS: SIMETHICONE 80 MG CHEW PO SCH (08:13)
[2018-11-28] MEDS: PRENATAL VITAMIN 1 TAB PO SCH (08:14)
--- NOTE | 2018-11-28 09:31 | Obstetrical Progress Note ---
Date of Service November 28, 2018 Assessment & Plan (1) care following delivery: satisfactory post-op course continue current care plan Present on Admission?: No (2) Hemorrhoids during : general surgery consult & recommendations pending. Present on Admission?: Yes Day #:: 2 Subjective Ambulation: ambulating normally Voiding: no voiding problems Passing Gas:: Yes Diet Tolerance:: regular diet Lochia:: Small Feeding Type:: breast feeding incision pain is well controlled however, hemorrhoid pain has only been minimally relieved with topical meds. Review of Systems All systems reviewed & are unremarkable except as noted in HPI & below Physical Exam Vital Signs (Past 24 Hours) Last Vital Signs Temp 98.1 F 11/28/18 00:06 Pulse 85 11/28/18 00:06 Resp 18 11/28/18 00:06 BP 145/94 H 11/28/18 00:06 Pulse Ox 99 11/28/18 00:06 Constitutional WD/WN, vitals as above Gastrointestinal (Abdomen) normal bowel sounds, soft, nontender, no hepatosplenomegaly Inspection/Auscultation: + abdominal surgical incision (dry & intact , no redness) Rectal Exam: + hemorrhoids (several large tender hemorrhoids 2 areas appear thrombosed & firm) Musculoskeletal no calf tenderness Genitourinary OB Exam Abdomen: + fundal height Fundus: + firm and + relation to umbilicus (2 below U)
--- NOTE | 2018-11-28 10:06 | Surgery Consultation ---
Date of Consultation November 28, 2018 Assessment & Plan (1) Hemorrhoids during : severely inflammed hemorrhoids. appear more inflammed than thrombosed though there is a questionable area on medial side gave 3 options: 1. I attempt drainage of questionable thrombosed area at bedside under local. 2. She already ate today...could stay until tomorrow and keep npo and attempt drainage in OR. We discussed the need to "pump and dump" following for 24 hours. 3. She avoid narcotics, do hot sitz baths several times daily, and we add proctofoam to her regiment. I would re-evaluate her thursday or thursday in office and drain there if no better by then. She would like option 3. we discussed increased water intake, avoid spicy foods, sitz baths, proctofoam. script on chart. follow up with me early this week. History of Present Illness Attending Physician: Lona Guerrero MD, FACOG History of Present Illness pt with her 3rd delivery 2 days ago- csection. had developed severe hemorrhoids since delivery. had a similar episode after 2nd that resolved with conservative tx. no bleeding. +bm since delivery. very uncomfortable. had hemorrhoids as a baseline but manages them conservatively. Allergies Allergy/AdvReac Type Severity Reaction Status Date / Time codeine Allergy Severe RASH/NAUSEA Verified 11/18/18 09:41 (SEVERE) peanut Allergy Unknown RASH Verified 11/18/18 09:41 Sulfa (Sulfonamide Allergy Unknown Hives Verified 11/26/18 02:42 Antibiotics) nickel Allergy Rash Verified 11/26/18 06:07 Home Medications Home Medications Medication Instructions Recorded Confirmed Type PNV cmb#95-ferrous fumarate-FA 1 tab PO DAILY 11/18/18 11/26/18 History [] docusate sodium [Stool Softener] 2 cap PO DAILY 11/18/18 11/26/18 History doxylamine succinate [Unisom 12.5 mg PO HS PRN 11/18/18 11/26/18 History (doxylamine)] sertraline 75 mg PO QPM 11/18/18 11/26/18 History hydrocortisone-pramoxine 1 appln MN BID PRN 15 Days #10 gm 11/28/18 Rx [Proctofoam HC] ibuprofen 600 mg PO Q6H PRN #30 tab 11/28/18 Rx Patient History Medical History Depression with anxiety Hemorrhoid History of pre-eclampsia "STARTING OF" (WITH A PRIOR ); NOT AN ISSUE WITH CURRENT Obesity Surgical History History of 2 sections INITIAL C/S 2/2 FAILURE TO PROGRESS REPEAT C/S: 11/11/15: SAB at L3-L4 at [facility] History of left knee surgery History of wisdom tooth extraction Family History Mother Family history of liver cancer Social History Preferred Language: Sinhala Communication Ability: Effective Diploma Pharmacy Technician Required: No Beliefs That Will Affect Care: None marital status: Current Living Situation: Family Other Information That Helps Us Care for You: No Feels Safe at Home: Yes Safety Concerns: Feels Safe At This Time Smoking Status: Never smoker Do You Dip or Chew Tobacco: No Second Hand Exposure: No Tobacco Cessation Education Requested by Patient: No Hx Alcohol Use: No Hx Substance Use: No Review of Systems Review of Systems: All systems reviewed & are unremarkable except as noted in HPI & below Physical Exam Physical Exam: alert. mild discomfort. Heent: pearla. eomi abd: soft. expected tenderness +large /prolapsed hemorrhoids. very tender/inflammed. questionable area on medial side of thrombosis. no bleeding. Results & Data Vital Signs (Past 12 Hours) Vital Signs Temp Pulse Resp BP Pulse Ox 11/28/18 00:06 36.7 C 85 18 145/94 H 99
[2018-11-28] MEDS: SUPERCREAM 0.870% 15 GM JAR EXT PRN (12:21)
--- NOTE | 2018-11-28 23:23 | Discharge Summary ---
PRINCIPAL DIAGNOSES: Intrauterine at 39 weeks, prior section x2, and unwanted fertility. PRINCIPAL PROCEDURE: Repeat low transverse section and bilateral tubal ligation. BRIEF HISTORY: The patient is a 33-year-old 4, para 3-0-1-3, white female who presented at 39 weeks for a repeat section and bilateral tubal ligation. She underwent through this procedure without any complications for delivery of a 9-pound 7-1/2-ounce female . She had an uncomplicated postop course. She remained afebrile throughout her hospital stay. She was eating regular diet on her 1st postop day. She did have symptomatic external hemorrhoids for which Dr. Ben Stewart was consulted. The patient has elected to try Proctofoam cream at this time and follow up with Dr. Stewart for further recommendations and treatment. Hemoglobin on admission was 10.4 and hematocrit 30.1. First postop day, hemoglobin is 9.6, hematocrit of 28.3. Second postop day, hemoglobin 10.1, hematocrit 30.2. She was sent home in good condition with prescriptions for ibuprofen 1 or 2 tablets p.o. q. 4 hours p.r.n. pain and the Proctofoam to be used per Dr. Stewart's instructions. She is to call for temperature of 101 degrees or higher, heavy vaginal bleeding, burning with urination, increased redness, drainage, or pain from her incision, calf tenderness or any other concerns. She will follow up with Dr. Stewart in 2 days for further evaluation and with the OB office in 6 weeks.
--- OUTSIDE RECORDS SUMMARY | 2018-11-29 21:48 | External Medical Summary | Continuity of Care Document ---
:1985 Author Name Sabrina Reid, Provider Address Unavailable Unavailable , Care Team Providers Name Role Phone Cesar Reid, Lona Gary Unavailable Kay [email or web address] [email or web address], NO Unavailable Unavailable Unavailable Unavailable Unavailable Problems Hemorrhoids (455.6) (K64.9) Obesity in , antepartum (649.13) (O99.210) Previous delivery, antepartum (654.23) (O34.219) Supervision of normal intrauterine pregn max in multigravida in third trimester (V22.1) (Z34.83) Allergies and Adverse Reactions Sulfa Drugs (Allergy) Tylenol with Codeine #3 TABS (Allergy) Peanuts (Allergy) Medications Stool Softener 100 MG Oral Capsule Start : 13-Sep-2018 Refills: 0 Vitamin B6 TABS Refills: 0 Unisom TABS Refills: 0 Vitamins TABS Refills: 0 Sertraline HCl - 50 MG Oral Tablet; TAKE 1 AND 1/2 TABLETS D AILY. Refills: 0 Procedures History of Oral Surgery Tooth Extraction Status: Completed History of Arthroscopy Knee Left Status: Completed History of section Status: Comp leted Immunizations Fluzone INJ On: 29-Aug-2013 16:26 Lot #: [id number], SANOFI PASTEUR Tdap (Adacel) On: 21-Dec-2013 15:42 Lot #: [id number], SANOFI PASTEUR Fluzone Quadrivalent 0.5 ML Intramuscular Suspension P refilled Syringe On: 24-May-2018 11:16 Lot #: [id number], SANOFI PASTEUR Tdap (Adacel) On: 13-Sep-2018 12:20 Lot #: [id number], SANOFI PASTEUR Family History Brother Family history of Trisomy 21 (Down Syndrome) Status: Active FHx: hypercholesterolemia (V18.19) (Z83.42) Status: Active Sister Family history of Trisomy 21 (Down Syndrome) Status: Active Mother Family history of Liver Cancer Status: Active Family history of kidney stone (V18.69) (Z84.1) Status: Acti ve uncle Family history of diabetes mellitus (V18.0) (Z83.3) Status: Active Father Family history of hypertension (V17.49) (Z82.49) Status: Act beverley FHx: hypercholesterolemia (V18.19) (Z83.42) Status: Active Plan of Treatment Planned Encounters Appointment; Lona Guerrero M.D. Start: 14:40 Request Planned Observations Planned Goals not documented Results Group B Strep/MALLOY 09-Nov-2018 11:17 GRP B BETA STREP CULTURE - MALLOY ORDERED P ROCEDURE : GRP B Beta Strep Culture -MALLOY; Speciment : V aginal/Rectal Source of Specimen: Vaginal/ Rectal Group B St rep Culture : No Group B Strep isolated Vital Signs 25-Nov-2018 9:50 Systolic 142 mm[Hg] Diastolic 88 mm[Hg] Height 66.5 in BMI Calculated 40.7 kg/m2 Weight 256 lb BSA Calculated 2.23 m2 16-Nov-2018 9:58 Systolic 130 mm[Hg] Diastolic 82 mm[Hg] Height 66.5 in BMI Calculated 41.08 kg/m2 Weight 258.375 lb BSA Calculated 2.24 m2 09-Nov-2018 9:38 Systolic 130 mm[Hg] Diastolic 80 mm[Hg] Height 66.5 in BMI Calculated 40.3 kg/m2 Weight 253.5 lb BSA Calculated 2.22 m2 Encounters Appointment; Lona Guerrero M.D. 26-Nov-2018 7:30 Encounter Diagnosis: Problem not documented Appointment; Lona Guerrero M.D. 25-Nov-2018 9:40 Encounter Diagnosis: Problem not documented Appointment; Tatiana Ramsay M.D. 16-Nov-2018 10:10 Encounter Diagnosis: Problem not documented Appointment; Jerome Quinn M.D. 09-Nov-2018 9:40 Encounter Diagnosis: Problem not documented Appointment; Augustin Carroll M.D. 26-Oct-2018 9:30 Encounter Diagnosis: Problem not documented Appointment; Jerome Quinn M.D. 13-Oct-2018 15:10 Encounter Diagnosis: Problem not documented Appointment; OBGYN SC1, Ultrasound 13-Oct-2018 14:30 Encounter Diagnosis: Problem not documented Appointment; Jerome Quinn M.D. 27-Sep-2018 11:20 Encounter Diagnosis: Problem not documented Appointment; Camille Rocha DO 13-Sep-2018 11:30 Encounter Diagnosis: Problem not documented Appointment; Yodit Alicea M.D. 16-Aug-2018 15:00 Encounter Diagnosis: Problem not documented Appointment; OBGYN SC1, Ultrasound 16-Aug-2018 14:30 Encounter Diagnosis: Problem not documented Appointment; Caren Puga M.D. 20-Jul-2018 11:20 Encounter Diagnosis: Problem not documented Appointment; OBGYN SC2, Ultrasound 20-Jul-2018 10:15 Encounter Diagnosis: Problem not documented Appointment; Yodit Alicea M.D. 21-Jun-2018 10:30 Encounter Diagnosis: Problem not documented Appointment; Caren Puga M.D. 24-May-2018 10:00 Encounter Diagnosis: Problem not documented Appointment; OB SC1, Procedure Rm 23-Apr-2018 9:50 Encounter Diagnosis: Problem not documented Appointment; Jerome Quinn M.D. 23-Apr-2018 9:50 Encounter Diagnosis: Problem not documented Appointment; OB SC1, Nursing Station 16-Apr-2018 10:45 Encounter Diagnosis: Problem not documented Appointment; Tatiana Ramsay M.D. 08-Apr-2018 10:30 Encounter Diagnosis: Problem not documented Appointment; Caren Puga M.D. 06-Jan-2017 14:00 Encounter Diagnosis: Problem not documented Appointment; Lona Guerrero M.D. 11-Jan-2019 14:40 Encounter Diagnosis: Problem not documented
== END 2018-11-28 12:45 | disposition home or self-care (01) | DRG 784 ==
LOC: 4S1 05:40 → EDSTATUS 07:30 → 4S2 12:35